=== PATIENT | male | born 1980 | race Caucasian/White ===

== ENCOUNTER 2019-11-21 10:30 | Emergency (ER) | payer OTHER ==
[2019-11-21 10:37] VITALS: BP 136/83
[2019-11-21] MEDS ORDERED: GUAI120L35 PO (10:43)
[2019-11-21] MEDS ORDERED: AZIT250T PO (10:43)
--- NOTE | 2019-11-21 10:44 | PHYS DOC ---
Adult General Chief Complaint Chief Complaint: COUGH HPI HPI Patient is a 39-year-old male who presents with complaint of productive cough, sinus pain and drainage for about a week. Patient also states that he is been running a fever. He denies any chest pain or shortness breath.[] Review of Systems Review of Systems Constitutional: Positive fever and chills [] HENT: Positive congestion and sinus drainage[] Respiratory: Positive cough without shortness of breath [] Cardiovascular: No additional information not addressed in HPI [] Integument: Denies rash or skin lesions [] Neurologic: Complains of headache without focal weakness or sensory changes [] Allergies Allergies Allergies Coded Allergies Type Severity Reaction Last Updated Verified No Known Drug Allergies 11/21/19 No Physical Exam Physical Exam Constitutional: Well developed, well nourished, no acute distress, non-toxic appearance. [] HENT: Normocephalic, atraumatic, bilateral external ears normal, oropharynx moist, no oral exudates, nose normal. [] Cardiovascular:Heart rate regular rhythm, no murmur [] Lungs & Thorax: Bilateral breath sounds clear to auscultation [] Skin: Warm, dry, no erythema, no rash. [] Extremities: No tenderness, no cyanosis, no clubbing, ROM intact, no edema. [] EKG EKG [] Radiology/Procedures Radiology/Procedures [] Course & Med Decision Making Course & Med Decision Making Pertinent Labs and Imaging studies reviewed. (See chart for details) [] Dragon Disclaimer Dragon Disclaimer This electronic medical record was generated, in whole or in part, using a voice recognition dictation system. Departure Departure: Impression: Primary Impression: Acute bronchitis Disposition: 01 HOME, SELF-CARE Condition: STABLE Referrals: PCP,NO (PCP) Patient Instructions: Acute Bronchitis Scripts Azithromycin (ZITHROMAX) 250 Mg Tablet 1 PKG PO UD for infection, #6 TAB Prov: ARELI BOLAÑOS Jr. DO 11/21/19 Guaifenesin/Codeine Phosphate (Codeine-Guaifen 10-100 mg/5 ml) 120 Ml Liquid 5 ML PO PRN Q6HRS PRN for cough and congestion MDD 20 Milliliter(s) for 6 Days, #120 ML 0 Refills Prov: ARELI BOLAÑOS Jr. DO 11/21/19 Problem Qualifiers Primary Impression: Acute bronchitis Bronchitis organism: unspecified organism Qualified Codes: J20.9 - Acute bronchitis, unspecified ARELI BOLAÑOS Jr. DO Nov 21, 2019 10:43
== END 2019-11-21 10:45 | disposition home or self-care (01) ==
LOC: ER 10:30
DX: J20.9 Acute bronchitis, unspecified (principal)
CPT/HCPCS: 99283

== ENCOUNTER 2020-02-11 08:26 | Emergency (ER) | payer OTHER ==
[~2020-02-11] VITALS: Ht 182.9 cm; Wt 80.0 kg
[~2020-02-11 08:26] MED LIST: AZIT250T PO; GUAI120L35 PO
[2020-02-11 08:59] VITALS: BP 124/68
--- NOTE | 2020-02-11 09:03 | PHYS DOC ---
Past History Past Medical History: No Pertinent History Past Surgical History: No Surgical History Alcohol Use: None Drug Use: None Adult General Chief Complaint Chief Complaint: KNEE INJURY HPI HPI 39-year-old male presents with left knee pain. The patient was playing with his kids 3 days ago and treat to his left knee. He has continued to have pain since that time. He has 2 previous partial tears of the infrapatellar ligament. He is concerned this is less going on now. It is most painful to flex and extend. He is able to walk but it is painful. He denies any other injuries or complaints. Review of Systems Review of Systems Constitutional: Denies fever or chills [] Eyes: Denies change in visual acuity, redness, or eye pain [] HENT: Denies nasal congestion or sore throat [] Respiratory: Denies cough or shortness of breath [] Cardiovascular: No additional information not addressed in HPI [] GI: Denies abdominal pain, nausea, vomiting, bloody stools or diarrhea [] : Denies dysuria or hematuria [] Musculoskeletal: Left knee pain[] Integument: Denies rash or skin lesions [] Neurologic: Denies headache, focal weakness or sensory changes [] Endocrine: Denies polyuria or polydipsia [] All other systems were reviewed and found to be within normal limits, except as documented in this note. Allergies Allergies Allergies Coded Allergies Type Severity Reaction Last Updated Verified No Known Drug Allergies 11/21/19 No Physical Exam Physical Exam Constitutional: Well developed, well nourished, no acute distress, non-toxic appearance. [] HENT: Normocephalic, atraumatic, bilateral external ears normal, oropharynx moist, no oral exudates, nose normal. [] Eyes: PERRLA, EOMI, conjunctiva normal, no discharge. [] Neck: Normal range of motion, no tenderness, supple, no stridor. [] Cardiovascular:Heart rate regular rhythm, no murmur [] Lungs & Thorax: Bilateral breath sounds clear to auscultation [] Abdomen: Bowel sounds normal, soft, no tenderness, no masses, no pulsatile mas ses. [] Skin: Warm, dry, no erythema, no rash. [] Back: No tenderness, no CVA tenderness. [] Extremities: Mild swelling of the left knee, point tenderness just proximal to the tibial tuberosity, ACL, PCL, medial and lateral ligaments with good end feel and no pain.[] Neurologic: Alert and oriented X 3, normal motor function, normal sensory function, no focal deficits noted. [] Psychologic: Affect normal, judgement normal, mood normal. [] EKG EKG [] Radiology/Procedures Radiology/Procedures [] Impressions: Examination: KNEE LEFT 4V History: Left knee pain, injury Comparison/Correlation: None Findings: Total of 4 images of the left knee were obtained. Joint spaces are normal. No acute fracture or bone destruction. Soft tissues are unremarkable. No degenerative changes. No significant or definite joint effusion. Impression: No acute process. Electronically signed by: Hue Garcia MD (02/11/2020 9:19 AM) [id number] DICTATED AND SIGNED BY: HUE GARCIA MD DATE: 02/11/20918 CC: AMIRAH HARPER DO; MATEUS BRUNSON DO ~ Course & Med Decision Making Course & Med Decision Making Pertinent Labs and Imaging studies reviewed. (See chart for details) [] Dragon Disclaimer Dragon Disclaimer This electronic medical record was generated, in whole or in part, using a voice recognition dictation system. Departure Departure: Impression: Primary Impression: Left anterior knee pain Disposition: HOME, SELF-CARE Condition: STABLE Referrals: AMIRAH HARPER DO (PCP) Patient Instructions: Knee - Patella Problems Scripts Hydrocodone Bit/Acetaminophen (NORCO 5-325 TABLET) 1 Each Tablet 1 TAB PO PRN Q6HRS PRN for PAIN, #10 TAB 0 Refills Prov: MATEUS BRUNSON DO 02/11/20 MATEUS BRUNSON DO Feb 11, 2020 09:03
--- NOTE | 2020-02-11 09:22 | RAD ---
Examination: KNEE LEFT 4V History: Left knee pain, injury Comparison/Correlation: None Findings: Total of 4 images of the left knee were obtained. Joint spaces are normal. No acute fracture or bone destruction. Soft tissues are unremarkable. No degenerative changes. No significant or definite joint effusion. Impression: No acute process. Electronically signed by: Jorge L Metz MD (02/11/2020 9:19 AM) [id number]
[2020-02-11] MEDS ORDERED: HYDR-3165 PO (09:49)
== END 2020-02-11 09:58 | disposition home or self-care (01) ==
LOC: ER 08:26
DX: M25.562 Pain in left knee (principal)
CPT/HCPCS: 73564; 99283

== ENCOUNTER 2020-04-23 06:40 | Emergency (ER) | payer OTHER ==
[~2020-04-23] VITALS: Ht 182.9 cm; Wt 80.0 kg
[2020-04-23 06:40] VITALS: BP 116/77
[~2020-04-23 06:40] MED LIST changes: +HYDR-3165 PO
--- NOTE | 2020-04-23 07:05 | PHYS DOC ---
Past History Past Medical History: No Pertinent History Past Surgical History: No Surgical History Alcohol Use: Rarely Drug Use: None General Adult EDM: Chief Complaint: ANKLE PROBLEM HPI: HPI: Patient is a 39-year-old male who presents with complaint of left ankle pain for last couple of days. Patient indicates that there is been no injury. He states the pain started around the Achilles tendon and radiates down into the ankle. He also indicates that it is causing some numbness in his heel. He states that he has a history of gout but that is typically located in his great toes. He states that he is also changed his diet to help to prevent any further attacks. He denies any redness or warmth in the ankle. He states that he is having great difficulty with weightbearing due to the pain. [] Review of Systems: Review of Systems: Constitutional: Denies fever or chills Respiratory: Denies cough or shortness of breath Cardiovascular: Denies chest pain or edema Musculoskeletal: Complains of left ankle and foot pain Integument: Denies rash Neurologic: Denies headache or focal weakness Heart Score: Risk Factors: Risk Factors: DM, Current or recent (<one month) smoker, HTN, HLP, family history of CAD, obesity. Risk Scores: Score 0 - 3: 2.5% MACE over next 6 weeks - Discharge Home Score 4 - 6: 20.3% MACE over next 6 weeks - Admit for Clinical Observation Score 7 - 10: 72.7% MACE over next 6 weeks - Early Invasive Strategies Allergies: Allergies: Allergies Coded Allergies Type Severity Reaction Last Updated Verified No Known Drug Allergies 11/21/19 No Physical Exam: PE: Constitutional: Well developed, well nourished, no acute distress, non-toxic appearance. [] Neck: Normal range of motion, no tenderness, supple, no stridor. [] Cardiovascular: Regular rate and rhythm [] Lungs & Thorax: Bilateral breath sounds clear to auscultation [] Extremities: Left ankle demonstrates tenderness to palpation at the Achilles insertion as well as just anterior to the lateral malleolus and along the course of the tarsal tunnel. [] EKG: EKG: [] Radiology/Procedures: Radiology/Procedures: [] Course & Med Decision Making: Course & Med Decision Making Pertinent Labs and Imaging studies reviewed. (See chart for details) [] Dragon Disclaimer: Dragon Disclaimer: This electronic medical record was generated, in whole or in part, using a voice recognition dictation system. Departure Departure: Impression: Primary Impression: Gout Qualified Codes: M10.9 - Gout, unspecified Disposition: 01 HOME/RESIDENCE PRIOR TO ADM Condition: STABLE Referrals: PCP,UNKNOWN (PCP) Patient Instructions: Gout Scripts Colchicine (COLCRYS) 0.6 Mg Tablet 1 TAB PO BID for gout pain for 10 Days, #20 TAB 0 Refills Prov: ARELI BOLAÑOS Jr. DO 04/23/20 Indomethacin (INDOMETHACIN) 50 Mg Capsule 1 CAP PO TID PRN for PAIN for 10 Days, #30 CAP 0 Refills with food Prov: ARELI BOLAÑOS Jr. DO 04/23/20 Methylprednisolone (MEDROL) 4 Mg Tab.ds.pk 1 PKG PO UD for inflammation, #1 PKG Prov: ARELI BOLAÑOS Jr. DO 04/23/20 Hydrocodone Bit/Acetaminophen (NORCO 5-325 TABLET) 1 Each Tablet 1 TAB PO PRN Q6HRS PRN for PAIN, #12 TAB 0 Refills Prov: ARELI BOLAÑOS Jr. DO 04/23/20 Justification of Admission: Justification of Admission: Justification of Admission Dx: N/A ARELI BOLAÑOS Jr., DO Apr 23, 2020 07:05
--- NOTE | 2020-04-23 07:23 | RAD ---
Left ankle x-rays 3 views HISTORY: Left ankle pain. FINDINGS: No acute fracture. No dislocation. No talus osteochondral lesion. Soft tissues are unremarkable. There is a tiny 2 mm linear sclerotic calcification on the AP view along the medial talocalcaneal joint without a donor site, most likely due to an old ligamentous injury or old avulsion. IMPRESSION: No acute osseous injury. See above. Electronically signed by: Darrell Dean MD (04/23/2020 7:20 AM) [id number]
[2020-04-23 07:30] LABS: BASO # 0.1 x10^3/uL (0.0-0.2); BASO % 1 % (0-3); EOS # 0.2 x10^3/uL (0.0-0.7); EOS % 2 % (0-3); HEMATOCRIT 44.5 % (39.0-53.0); HEMOGLOBIN 15.4 g/dL (13.0-17.5); LYMPH # 2.8 x10^3/uL (1.0-4.8); LYMPH % 26 % (24-48); MEAN CORPUSCULAR HEMOGLOBIN 31 pg (25-35); MEAN CORPUSCULAR HGB CONC 35 g/dL (31-37); MEAN CORPUSCULAR VOLUME 91 fL (79-100); MONO # 0.7 x10^3/uL (0.0-1.1); MONO % 7 % (0-9); NEUT # 6.8 x10^3uL (1.8-7.7); NEUT % 65 % (31-73); PLATELET COUNT 274 x10^3/uL (140-400); RED BLOOD COUNT 4.89 x10^6/uL (4.30-5.70); RED CELL DISTRIBUTION WIDTH 12.7 % (11.5-14.5); WHITE BLOOD COUNT 10.6 x10^3/uL (4.0-11.0)
[2020-04-23 07:39] LABS: C REACTIVE PROTEIN 3.2 mg/L (0-3.3)
[2020-04-23] MEDS ORDERED: HYDR-3165 PO (07:49)
[2020-04-23] MEDS ORDERED: COLC0.6T34 PO (07:49)
[2020-04-23] MEDS ORDERED: METH4TAB2 PO (07:49)
[2020-04-23] MEDS ORDERED: INDO50CA15 PO (07:49)
== END 2020-04-23 07:57 | disposition home or self-care (01) ==
LOC: ER 06:40
DX: M10.9 Gout, unspecified (principal); M25.572 Pain in left ankle and joints of left foot; M79.672 Pain in left foot
CPT/HCPCS: 36415; 73610; 84550; 85025; 86140; 99284

== ENCOUNTER 2020-08-23 16:33 | Emergency (ER) | payer OTHER ==
[~2020-08-23] VITALS: Ht 182.9 cm; Wt 93.1 kg
[~2020-08-23 16:33] MED LIST changes: +COLC0.6T34 PO; +INDO50CA15 PO; +METH4TAB2 PO
[2020-08-23 16:52] VITALS: BP 112/72
[2020-08-23] MEDS ORDERED: diphenhydrAMINE HCL 25 MG CAPSULE PO ONE (17:00)
[2020-08-23] MEDS ORDERED: DEXAMETHASONE SOD PHOS 10 MG/ML VIAL. IM ONE (17:00)
[2020-08-23] MEDS ORDERED: FAMOTIDINE 20 MG TABLET PO ONE (17:00)
--- NOTE | 2020-08-23 17:34 | PHYS DOC ---
Past History Past Medical History: No Pertinent History Past Surgical History: No Surgical History Alcohol Use: Rarely Drug Use: None General Adult EDM: Chief Complaint: HAND PROBLEM HPI: HPI: Jose Luis Ramsey is a 39-year-old male who presents Review of Systems: Review of Systems: Constitutional: Denies fever or chills Eyes: Denies change in visual acuity HENT: Denies nasal congestion or sore throat Respiratory: Denies cough or shortness of breath Cardiovascular: Denies chest pain or edema GI: Denies abdominal pain, nausea, vomiting, bloody stools or diarrhea : Denies dysuria Musculoskeletal: Denies back pain or joint pain Integument: Denies rash Neurologic: Denies headache, focal weakness or sensory changes Endocrine: Denies polyuria or polydipsia Lymphatic: Denies swollen glands Psychiatric: Denies depression or anxiety Heart Score: Risk Factors: Risk Factors: DM, Current or recent (<one month) smoker, HTN, HLP, family history of CAD, obesity. Risk Scores: Score 0 - 3: 2.5% MACE over next 6 weeks - Discharge Home Score 4 - 6: 20.3% MACE over next 6 weeks - Admit for Clinical Observation Score 7 - 10: 72.7% MACE over next 6 weeks - Early Invasive Strategies Current Medications: Current Meds: Current Medications Medications (Trade) Dose Ordered Sig/Ellie Start Time Stop Time Status Last Admin Dose Admin Dexamethasone Sodium Phosphate (Decadron) 10 mg 1X ONCE 08/23/20 17:00 08/23/20 17:05 DC 08/23/20 17:17 10 MG Diphenhydramine HCl (Benadryl) 25 mg 1X ONCE 08/23/20 17:00 08/23/20 17:05 DC 08/23/20 17:16 25 MG Famotidine (Pepcid) 20 mg 1X ONCE 08/23/20 17:00 08/23/20 17:05 DC 08/23/20 17:16 20 MG Allergies: Allergies: Allergies Coded Allergies Type Severity Reaction Last Updated Verified No Known Drug Allergies 11/21/19 No Physical Exam: PE: Constitutional: Well developed, well nourished, no acute distress, non-toxic appearance. [] HENT: Normocephalic, atraumatic, bilateral external ears normal, oropharynx moist, no oral exudates, nose normal. [] Eyes: PERRLA, EOMI, conjunctiva normal, no discharge. [] Neck: Normal range of motion, no tenderness, supple, no stridor. [] Cardiovascular:Heart rate regular rhythm, no murmur [] Lungs & Thorax: Bilateral breath sounds clear to auscultation [] Abdomen: Bowel sounds normal, soft, no tenderness, no masses, no pulsatile masses. [] Skin: Warm, dry, no erythema, no rash. [] Back: No tenderness, no CVA tenderness. [] Extremities: No tenderness, no cyanosis, no clubbing, ROM intact, no edema. [] Neurologic: Alert and oriented X 3, normal motor function, normal sensory function, no focal deficits noted. [] Psychologic: Affect normal, judgement normal, mood normal. [] Current Patient Data: Vital Signs: Vital Signs Date Time Temp Pulse Resp B/P (MAP) Pulse Ox O2 Delivery O2 Flow Rate FiO2 08/23/20 16:52 98.2 70 16 112/72 (85) 98 Room Air EKG: EKG: [] Radiology/Procedures: Radiology/Procedures: [] Course & Med Decision Making: Course & Med Decision Making Pertinent Labs and Imaging studies reviewed. (See chart for details) [] Dragon Disclaimer: Dragon Disclaimer: This electronic medical record was generated, in whole or in part, using a voice recognition dictation system. Departure Departure: Disposition: 01 HOME/RESIDENCE PRIOR TO ADM Condition: STABLE Referrals: HANNAH ALMARAZ (PCP) HUBER CROW DO Aug 23, 2020 17:34
[2020-08-23] MEDS ORDERED: PRED20TA PO (17:35)
--- NOTE | 2020-08-23 17:36 | PHYS DOC ---
Past History Past Medical History: No Pertinent History Past Surgical History: No Surgical History Alcohol Use: Rarely Drug Use: None General Adult EDM: Chief Complaint: HAND PROBLEM HPI: HPI: Nando Ramsey is a 39-year-old male presents with a wasp sting. He states that he was stung on his left ring finger approximately 24 hours prior to arrival. Since then, the finger has become swollen and red, with the redness extending to his dorsal wrist. He denies presence of a stinger. He states that the rash has improved since lunch today and is currently on his mid hand. He has taken Motrin and cortisone cream to minimal relief. He denies history of allergies. Review of Systems: Review of Systems: Constitutional: Denies fever or chills Eyes: Denies redness or eye pain HENT: Denies nasal congestion or sore throat Respiratory: Denies cough or shortness of breath Cardiovascular: Denies chest pain or palpitations GI: Denies abdominal pain, nausea, or vomiting : Denies dysuria or hematuria Musculoskeletal: Denies back pain or joint pain Integument: Denies rash or skin lesions; affirms insect sting Neurologic: Denies headache, focal weakness or sensory changes Complete systems were reviewed and found to be within normal limits, except as documented in this note. Current Medications: Current Meds: Current Medications Medications (Trade) Dose Ordered Sig/Ellie Start Time Stop Time Status Last Admin Dose Admin Dexamethasone Sodium Phosphate (Decadron) 10 mg 1X ONCE 08/23/20 17:00 08/23/20 17:05 DC 08/23/20 17:17 10 MG Diphenhydramine HCl (Benadryl) 25 mg 1X ONCE 08/23/20 17:00 08/23/20 17:05 DC 08/23/20 17:16 25 MG Famotidine (Pepcid) 20 mg 1X ONCE 08/23/20 17:00 08/23/20 17:05 DC 08/23/20 17:16 20 MG Allergies: Allergies: Allergies Coded Allergies Type Severity Reaction Last Updated Verified No Known Drug Allergies 11/21/19 No Physical Exam: PE: Constitutional: Well developed, well nourished, no acute distress, non-toxic appearance HENT: Normocephalic, atraumatic Eyes: PERRL, EOMI, conjunctiva normal, no discharge Neck: Normal range of motion, no tenderness, supple Lungs & Thorax: No respiratory distress, equal chest rise and fall Abdomen: Soft, no tenderness Skin: Warm, dry, no erythema, no rash; left hand: Small area of ulceration on the middle phalanges of the ring finger, uniform swelling of finger with erythema extending to midway through the hand, capillary refill intact, range of motion limited due to swelling Back: No tenderness, no CVA tenderness Extremities: No tenderness, ROM intact, no edema Neurologic: Alert and oriented X 3, normal motor function, normal sensory function, no focal deficits noted Psychologic: Affect normal, judgment normal Current Patient Data: Vital Signs: Vital Signs Date Time Temp Pulse Resp B/P (MAP) Pulse Ox O2 Delivery O2 Flow Rate FiO2 08/23/20 16:52 98.2 70 16 112/72 (85) 98 Room Air Course & Med Decision Making: Course & Med Decision Making Patient presents with insect sting as presented above. No concern for infection due to patient's physical exam findings. He will be treated with oral prednisone, IM Pepcid, and IM Benadryl. He is directed to stop using cortisone cream. [employer] Disclaimer: [employer] Disclaimer: This electronic medical record was generated, in whole or in part, using a voice recognition dictation system. Departure Departure: Impression: Primary Impression: Wasp sting Qualified Codes: T63.464A - Toxic effect of venom of wasps, undetermined, initial encounter Disposition: HOME/RESIDENCE PRIOR TO ADM Condition: STABLE Referrals: PCP,NO (PCP) Patient Instructions: Bee, Wasp, or Hornet Sting Additional Instructions: Take over the counter Benadryl as needed for continued swelling Clean wound daily with soap and water. Use over the counter antibiotic ointment to area. Scripts Prednisone (PREDNISONE) 20 Mg Tablet 2 TAB PO DAILY for Bee sting, #8 TAB Prov: HUBER CROW DO 08/23/20 HUBER CROW DO Aug 23, 2020 17:36
== END 2020-08-23 17:49 | disposition home or self-care (01) ==
LOC: ER 16:33
DX: T63.461A Toxic effect of venom of wasps, accidental (unintentional), initial encounter (principal); Y92.89 Other specified places as the place of occurrence of the external cause
CPT/HCPCS: 96372; 99283; J1100; Q0163